=== PATIENT | female | born 1965 | race Caucasian/White ===

== ENCOUNTER 2016-11-16 08:41 | Day surgery (SDC) | payer MEDICARE, OTHER ==
[2016-11-16] MEDS ORDERED: Lactated Ringer's 500 ML IV ONE (09:23)
[2016-11-16] MEDS ORDERED: Propofol 10 mg/ml Inj (20 ML) ONE (10:15)
[2016-11-16 10:56] VITALS: TEMP 97
[2016-11-16 11:07] VITALS: BP 107/57; PULSE 57; RESP 15; O2SAT 100
== END 2016-11-16 12:31 | disposition home or self-care (01) ==
LOC: H.ENDO 08:41
PROVIDERS: ATTEND Internal Medicine Gastroenterology
DX: Z12.11 Encounter for screening for malignant neoplasm of colon (principal); E78.5 Hyperlipidemia, unspecified; K64.8 Other hemorrhoids
CPT/HCPCS: G0121; J2001; J2704; J7120